=== PATIENT | male | born 1955 | race Caucasian/White ===

== ENCOUNTER 2020-12-30 14:32 | Emergency (ER) | payer MEDICARE ==
[2020-12-30] MEDS ORDERED: PREDNISONE 50 M50 MG PO (17:33)
== END 2020-12-30 17:47 | disposition home or self-care (01) ==
LOC: ER1 14:32
DX: M25.551 Pain in right hip (principal); G89.29 Other chronic pain; I10 Essential (primary) hypertension
CPT/HCPCS: 73502; 96372; 99283; J1885

== ENCOUNTER 2021-01-31 07:41 | Emergency (ER) | payer MEDICARE ==
[~2021-01-31 07:41] MED LIST: PREDNISONE 50 M50 MG PO
[2021-01-31] MEDS ORDERED: NEURONTIN300 MG PO (08:50)
== END 2021-01-31 09:00 | disposition home or self-care (01) ==
LOC: ER1 07:41
DX: G57.91 Unspecified mononeuropathy of right lower limb (principal); I10 Essential (primary) hypertension
CPT/HCPCS: 73630; 99283